=== PATIENT | male | born 1980 | race African-American/Black ===

== ENCOUNTER 2021-01-31 15:51 | Emergency (ER) | payer MEDICAID, SELFPAY ==
--- NOTE | 2021-01-31 | ECG_ITS ---
Test Reason : CHEST PAIN Blood Pressure : / mmHG Vent. Rate : 115 BPM Atrial Rate : 115 BPM P-R Int : 136 ms QRS Dur : 088 ms QT Int : 324 ms P-R-T Axes : 000 141 -24 degrees QTc Int : 448 ms Sinus tachycardia Left posterior fascicular block Low voltage complexes inferior leads Abnormal ECG No previous ECGs available Referred By: Generic ED Physician Electronically Signed By:CHELA HARLEY
--- NOTE | ~2021-01-31 | XR_ITS ---
EXAMINATION: XR CHEST CLINICAL INFORMATION: Shortness of breath COMPARISON: None TECHNIQUE: 2 views of the chest were obtained. FINDINGS: No significant abnormality is noted involving the heart, lungs, mediastinum, bony thorax or soft tissues. XR/XR chest 2V IMPRESSION: Unremarkable examination.
--- NOTE | ~2021-01-31 | CT_ITS ---
EXAMINATION: CT ANGIOGRAM OF THE CHEST WITH AND WITHOUT CONTRAST (CT PULMONARY ANGIOGRAM FOR PE) CLINICAL INFORMATION: Reason for Exam Right-sided pleuritic chest pain x2 days COMPARISON: None TECHNIQUE: Prior to contrast administration, noncontrast localization images were obtained. Subsequently, multidetector volumetric imaging was performed from the thoracic inlet to below the diaphragms following the administration of 85 mL Omnipaque 350 intravenous contrast. No contrast reaction reported Sagittal, coronal, and MIP oblique sagittal reformatted images were obtained on the CT workstation, uploaded to PACS, and reviewed. This CT examination was performed using dose optimization techniques as appropriate, variously including the following: *Automated exposure control *Adjustment of mA and/or kV according to patient size (this includes techniques or standardized protocols for targeted exams where dose is matched to indication/reason for exam; i.e. extremities or head) *Use of iterative reconstruction technique Total exam dose-length product 682 mGy-cm FINDINGS: QUALITY OF STUDY/CONTRAST BOLUS: Suboptimal. PULMONARY ARTERIES: No pulmonary emboli within the central pulmonary arteries. Significantly limited assessment of the segmental and subsegmental pulmonary arteries. THORACIC AORTA: No aneurysm or dissection. LUNG: No focal consolidation, nodules or masses. PLEURA: Trace right pleural effusion. No pneumothorax bilaterally. MEDIASTINUM: Normal heart size. No pericardial effusion. No hilar or mediastinal lymphadenopathy. No evidence of septal bowing or right heart strain. CHEST WALL/AXILLA: No axillary or internal mammary lymphadenopathy. OSSEOUS STRUCTURES: No acute or suspicious osseous abnormality. UPPER ABDOMEN: There is a 4.0 x 2.7 cm oval mass within the left adrenal gland measuring 21 Hounsfield units of internal attenuation. No reflux of contrast into the hepatic veins to suggest elevated right heart pressures. CT/CT angio chest PE protocol IMPRESSION: 1. Suboptimal contrast bolus to assess for pulmonary embolism. Although there are no central pulmonary emboli, the segmental and subsegmental branches are not well assessed. 2. Left adrenal mass measuring 4 cm, indeterminate. When clinically appropriate, follow-up with adrenal protocol CT or MRI is recommended. 3. Trace right pleural effusion. VTE: indeterminate
[2021-01-31] MEDS: Albuterol Sulfate 90 MCG 8 GM INHALER 4 PUFF INHALE (16:19)
[2021-01-31 16:22] VITALS: BP 120/84; PULSE 114; RESP 30; TEMP 36.9; O2SAT 97; BMI 51.6
--- NOTE | 2021-01-31 16:40 | PC.NURSE ---
cxr obtained, provider in room
--- NOTE | 2021-01-31 16:54 | ED_ITS ---
HPI - Chest Pain General Chief Complaint: Chest Pain Stated Complaint: Chest pain Time Seen by Provider: 01/31/21 16:10 Source: patient Mode of arrival: ambulatory Limitations: no limitations History of Present Illness HPI narrative: 40-year-old male who presents emergency department for evaluation of chest pain and shortness of breath x2 days. Patient states that 2 days prior he was coughing and had a sudden onset of right-sided stabbing chest pain. He states the pain has been constant but is significantly worse with breathing and coughing. He states the pain is a sharp pain which is 10/10 if he coughs or breathes. He does feel short of breath and has dyspnea on exertion. He states he has a cough which is productive of thick white phlegm, he has not noticed any blood in the sputum. He has been taking Aleve with no relief of his pain. He denied fever, chills, abdominal pain, nausea, vomiting, pain or swelling in his lower extremities. Patient states that he received 1 Pfizer COVID 19 vaccinatio n in May 2020. Related Data Previous Rx's Medication Instructions Recorded benzonatate 200 mg capsule 200 mg PO TID PRN #15 cap 01/31/21 ketorolac 10 mg tablet 10 mg PO TID PRN 5 Days tab 01/31/21 ketorolac 10 mg tablet 10 mg PO TID PRN 5 Days tab 01/31/21 oxycodone 5 mg tablet 5 mg PO Q4H PRN #14 tab 01/31/21 Allergies Allergy/AdvReac Type Severity Reaction Status Date / Time ibuprofen Allergy Unknown Verified 01/31/21 16:24 morphine Allergy Unknown Verified 01/31/21 16:24 Review of Systems Review of Systems: Yes all other systems are reviewed and are negative [facility] Past Medical History [facility] Narrative: Past medical history: Asthma, depression. Past surgical history: None. Social history: He smokes 4 cigarettes per day times 23 years. He occasionally drinks alcohol. He states that he smokes marijuana 2 to 3 times a week. Social History Social History Alcohol intake: current Alcohol intake frequency: holidays/special occasions only Patient Tobacco Use Status: Current everyday Tobacco user Use of substances other than those prescribed or required for medical reasons: Yes Substance Use Type: Marijuana Advance Directives: No Advance Directives Information Provided: Yes Physical Exam Vital Signs: Vital Signs: Last Vital Signs Temp 97.8 F 01/31/21 18:00 Pulse 100 01/31/21 18:00 Resp 20 01/31/21 18:00 BP 151/86 H 01/31/21 18:00 Pulse Ox 96 01/31/21 18:00 BMI result Body Mass Index 51.6 Const: Other: Awake, alert, male patient, obese, very pleasant and cooperative, appears to be in distress when he takes a deep breath in and holds his right side of his chest. He is able to answer all questions appropriately and speaks in full sentences. HENMT: Head: Yes normal to inspection, Yes normocephalic and Yes atraumatic Ears: external ears normal General nose exam: Normal external nose present Face and sinus: Yes normal facial exam Mouth: Normal oral and palatal mucosa present Throat: Yes posterior oropharynx normal Eyes: General: appearance normal, both eyes and all related structures Pupils: Equal, round and reactive pupils present Neck: Neck: Yes normal visual inspection, Yes no lymphadenopathy, Yes trachea midline and Yes supple Chest: Chest palpation & inspection: normal inspection of the chest and tenderness (Right lateral and anterior chest wall tenderness) Resp: Effort & Inspection: able to speak in complete sentences and abnormal respiratory pattern (Tachypnea) Auscultation: clear to auscultation bilaterally Cardio: Rate: regular rate and tachycardic Rhythm: regular rhythm Heart sounds: S1 normal heart sound present, S2 normal heart sound present and no murmurs GI: Inspection: Yes normal to inspection Palpation (GI): Soft to palpation, nontender and no guarding Auscultation: normal bowel sounds : General: Yes no CVA tenderness Back/Spine/Pelvis: Back: no CVA tenderness Skin: General skin exam: no rashes or lesions noted Neuro: Cranial nerves: Yes CN's II-XII intact bilaterally and Yes Equal, round and reactive pupils present Cognition (Neuro): normal cognition Motor exam (neuro): 5/5 motor strength present throughout Extrem: General: Yes normal to inspection Psych: Appearance: grossly normal Speech and movement: Normal speech and movement present Affect: normal affect Attitude: cooperative Thought process: Normal thought process present Thought content: Normal thought content present Course Course Course Narrative: 40-year-old male who presents to the emergency department for evaluation of 2 days of right-sided pleuritic chest pain which came on suddenly after coughing. Patient also has a productive cough x2 days with shortness of breath and dyspnea on exertion. Initial vital signs revealed an elevated pulse of 114, elevated respiratory rate of 30, was afebrile with a temperature of 98.4? and his O2 saturation was 97% on room air. Physical examination did reveal right anterior and right lateral chest wall tenderness, he was tachypneic and tachycardic otherwise exam was unremarkable. Differential includes but is not limited to pleurisy, pulmonary embolism, pneumonia, pneumothorax, musculoske letal strain from coughing. I ordered a laboratory evaluation to include CBC, CMP, D-dimer, PT INR, PTT, troponin, EKG, chest x-ray. Patient was ordered to get Toradol 15 mg IV 1st pain or normal saline x1 L. I will obtain a CT pulmonary angiogram pulmonary embolism protocol as well. 194: Laboratory evaluation: WBC was elevated at 12,200. BUN and creatinine were slightly elevated 18 and 1.58. COVID-19 was negative. Troponin was detectable but not elevated at 5.2. COVID-19 was negative. Chest x-ray revealed no acute process. CT angiogram pulmonary artery PE protocol was suboptimal but there were no large PEs found by the radiologist. Patient has it incidental 4 cm left adrenal mass, the patient states that he had a small adrenal mass several years ago but never followed up with his doctor. This time I believe the patient's chest pain is consistent with pleurisy. The initial dose of Toradol and a repeat dose of Toradol did improve his pain. He was started on Toradol 10 mg 3 times a day as needed for pain. He was also advised to take Tylenol for pain. For pain not relieved by these 2 medications he was prescribed oxycodone. He he was instructed follow-up with his PCP in 2 weeks for re-evaluation and discuss getting outpatient CT scan adrenal protocol are outpatient MRI to evaluate his adrenal mass. MDM - Chest Pain Lab Data Result diagrams: 01/31/21 17:40 01/31/21 17:40 Labs: Lab Results 01/31/21 01/31/21 01/31/21 Range/Units 17:40 17:40 17:40 WBC 12.2 H (4.8-10.8) X10*3/uL RBC 4.74 (4.60-5.80) X10*6/uL Hgb 14.5 (14.0-18.0) g/dl Hct 43.7 (42.0-52.0) % MCV 92.2 (80.0-98.0) fL MCH 30.6 (27.0-33.0) pg MCHC 33.2 (31.0-36.0) g/dl RDW 12.4 (11.0-16.0) % Plt Count 315 (160-400) X10*3/uL MPV 10.4 (9.4-12.4) fL Immature Gran % (Auto) 0.7 H (0.0-0.4) % Neut % (Auto) 66.9 (45-73) % Lymph % (Auto) 19.0 L (20-40) % Loving % (Auto) 6.5 (2-11) % Eos % (Auto) 6.2 H (0-4) % Baso % (Auto) 0.7 (0-2) % Lymph # (Auto) 2.3 (1.2-4.9) X10*3/uL Loving # (Auto) 0.8 (0.1-1.2) X10*3/uL Eos # (Auto) 0.8 H (0.0-0.4) X10*3/uL Baso # (Auto) 0.1 (0.0-0.2) X10*3/uL Abs Immat Gran (auto) 0.08 H (0.00-0.03) X10*3/uL Absolute Neuts (auto) 8.2 (2.0-8.3) x10*3/uL Absolute Nucleated RBC 0.000 (0.0-0.012) X10*3/uL Nucleated RBC % (auto) 0.0 (0.0-0.2) /100WBC PT 11.7 (9.9-13.0) SEC INR 1.0 (0.9-1.1) APTT 31.8 (24.1-38.0) SEC Sodium 134 L (135-145) mmol/L Potassium 4.3 (3.3-5.1) mmol/L Chloride 101 (96-108) mmol/L Carbon Dioxide 25 (22-29) mmol/L Anion Gap 12 (12-20) BUN 18 H (9-16) mg/dL Creatinine 1.56 H (0.5-1.4) mg/dL Estim Creat Clear Calc 97.1 Estimated GFR 50 Random Glucose 111 (60-115) mg/dL Calcium 9.0 (8.4-10.2) mg/dL Total Bilirubin 0.3 (0.0-1.0) mg/dL AST 18 (5-37) U/L ALT 20 (0-40) U/L Alkaline Phosphatase 82 (39-117) U/L Troponin I High Sens (<3.5-35.0) ng/L Total Protein 6.9 (6.5-8.0) g/dL Albumin 3.6 (3.5-5.0) g/dL Lipase 63 (8-78) U/L COVID-19 (LOLI) (Negative) COVID-19 Clin Com 01/31/21 01/31/21 Range/Units 17:40 17:40 WBC (4.8-10.8) X10*3/uL RBC (4.60-5.80) X10*6/uL Hgb (14.0-18.0) g/dl Hct (42.0-52.0) % MCV (80.0-98.0) fL MCH (27.0-33.0) pg MCHC (31.0-36.0) g/dl RDW (11.0-16.0) % Plt Count (160-400) X10*3/uL MPV (9.4-12.4) fL Immature Gran % (Auto) (0.0-0.4) % Neut % (Auto) (45-73) % Lymph % (Auto) (20-40) % Loving % (Auto) (2-11) % Eos % (Auto) (0-4) % Baso % (Auto) (0-2) % Lymph # (Auto) (1.2-4.9) X10*3/uL Loving # (Auto) (0.1-1.2) X10*3/uL Eos # (Auto) (0.0-0.4) X10*3/uL Baso # (Auto) (0.0-0.2) X10*3/uL Abs Immat Gran (auto) (0.00-0.03) X10*3/uL Absolute Neuts (auto) (2.0-8.3) x10*3/uL Absolute Nucleated RBC (0.0-0.012) X10*3/uL Nucleated RBC % (auto) (0.0-0.2) /100WBC PT (9.9-13.0) SEC INR (0.9-1.1) APTT (24.1-38.0) SEC Sodium (135-145) mmol/L Potassium (3.3-5.1) mmol/L Chloride (96-108) mmol/L Carbon Dioxide (22-29) mmol/L Anion Gap (12-20) BUN (9-16) mg/dL Creatinine (0.5-1.4) mg/dL Estim Creat Clear Calc Estimated GFR Random Glucose (60-115) mg/dL Calcium (8.4-10.2) mg/dL Total Bilirubin (0.0-1.0) mg/dL AST (5-37) U/L ALT (0-40) U/L Alkaline Phosphatase (39-117) U/L Troponin I High Sens 5.2 (<3.5-35.0) ng/L Total Protein (6.5-8.0) g/dL Albumin (3.5-5.0) g/dL Lipase (8-78) U/L COVID-19 (LOLI) Negative (Negative) COVID-19 Clin Com See Note ECG Data ECG #1: Attestation: I personally reviewed and interpreted this ECG as follows: Interpretation: Sixteen 13: Sinus tachycardia with a rate of 115, normal MI, QRS and QTC intervals, small Q-wave in lead 3 and AVF, poor R-wave progression V1 through V3, no ST segment elevation, no ST segment depression, flattened T-waves in leads 1, 2, AVF, V6. There is no old EKG for comparison, this is an abnormal EKG. Discharge Plan Discharge Clinical Impression: Adrenal mass, left, Pleurisy, Viral infection Patient Disposition: Home, Self-Care Instructions: Pleurisy (ED), Viral Syndrome (ED) Additional Instructions: Your blood work was unremarkable. Your COVID-19 test was negative. Your chest x-ray was normal. The CT scan of your chest did not reveal any blood clots, pneumonia or popped lung (pneumothorax). Your symptoms are consistent with inflammation of the lining of your lung (pleurisy). The treatment is to take anti-inflammatory medications. I am prescribing an anti-inflammatory called Toradol (Ketoralac) 10 mgTake ibuprofen 200 mg pills, 3 pills every 6 hours as needed for pain. Also take Tylenol (acetaminophen) 500 mg pills, 2 pills every 4-6 hours as needed for pain. For pain not relieved by Toradol or Tylenol take oxycodone 5 mg pills, 1 pill every 4 hours as needed for pain. Do not drive or work while taking this medication since they can cause sleepiness. Oxycodone is a narcotic medication that can be addicting. If you are concerned about addiction you can ask the pharmacist for less pills or do not get this prescription filled. The CT scan pulmonary angiogram of your chest did see that you have a left-sided adrenal mass (this is in the left side of her abdomen) measuring 4 cm . The radiologist is recommending that you have a follow-up study either a CT scan with adrenal protocol or and MRI of your adrenal glands . It is very important that you do not ignore this finding since sometimes this can represent a cancer of the adrenal gland therefore you should follow-up with your doctor doctor to get the recommended follow-up study. Follow-up with your doctor in 2 days. Please return to the emergency department if your symptoms get worse or if you develop any symptoms that are concerning to you. Prescriptions: New oxycodone 5 mg tablet 5 mg PO Q4H PRN (Reason: pain) Qty: 14 RF: 0 ketorolac 10 mg tablet 10 mg PO TID PRN (Reason: pain) 5 Days RF: 0 benzonatate 200 mg capsule 200 mg PO TID PRN (Reason: cough) Qty: 15 RF: 0 ketorolac 10 mg tablet 10 mg PO TID PRN (Reason: pain) 5 Days RF: 0
[2021-01-31] MEDS: Ketorolac Tromethamine 15 MG/ML VIAL IVPUSH ×2 (17:35→19:33)
[2021-01-31 17:46] LABS: MANUAL DIFF FLAG NO
[2021-01-31 17:53] LABS: Basophils Absolute Auto 0.1 X10*3/uL (0.0-0.2); Basophils Percent Auto 0.7 % (0-2); Eosinophils Absolute Auto 0.8 X10*3/uL (0.0-0.4); Eosinophils Percent Auto 6.2 % (0-4); Hematocrit 43.7 % (42.0-52.0); Hemoglobin 14.5 g/dl (14.0-18.0); Imm Gran Abs Auto 0.08 X10*3/uL (0.00-0.03); Imm Gran Pct Auto 0.7 % (0.0-0.4); Lymphocytes Absolute Auto 2.3 X10*3/uL (1.2-4.9); Mean Corpuscular HGB Conc 33.2 g/dl (31.0-36.0); Mean Corpuscular Hemoglobin 30.6 pg (27.0-33.0); Mean Corpuscular Volume 92.2 fL (80.0-98.0); Mean Platelet Volume 10.4 fL (9.4-12.4); Monocytes Absolute Auto 0.8 X10*3/uL (0.1-1.2); Monocytes Percent Auto 6.5 % (2-11); Neutrophils Absolute Auto 8.2 x10*3/uL (2.0-8.3); Neutrophils Percent Auto 66.9 % (45-73); Platelet Count 315 X10*3/uL (160-400); Red Blood Count 4.74 X10*6/uL (4.60-5.80); Red Cell Distribution Width 12.4 % (11.0-16.0); White Blood Count 12.2 X10*3/uL (4.8-10.8)
[2021-01-31 18:00] VITALS: BP 151/86; PULSE 100; RESP 20; TEMP 36.6; O2SAT 96
[2021-01-31 18:01] LABS: COVID-19 Test Negative (Negative); IDNOW Serial# 9DD0AD1C
[2021-01-31 18:05] LABS: Prothrombin Time 11.7 SEC (9.9-13.0)
[2021-01-31 18:07] LABS: Partial Thromboplastin Time 31.8 SEC (24.1-38.0)
[2021-01-31 18:16] LABS: Alanine Aminotransferase 20 U/L (0-40); Albumin Level 3.6 g/dL (3.5-5.0); Alkaline Phosphatase 82 U/L (39-117); Anion Gap 12 (12-20); Aspartate Amino Transferase 18 U/L (5-37); Bilirubin Total 0.3 mg/dL (0.0-1.0); Blood Urea Nitrogen 18 mg/dL (9-16); Carbon Dioxide 25 mmol/L (22-29); Chloride 101 mmol/L (96-108); Creatinine Clr Calc Pharmacy 97.1; Estimated Glomerular Filt Rate 50; Glucose Random 111 mg/dL (60-115); Lipase 63 U/L (8-78); Potassium 4.3 mmol/L (3.3-5.1); Sodium 134 mmol/L (135-145); Total Protein 6.9 g/dL (6.5-8.0)
[2021-01-31 18:19] LABS: Troponin-I High Sensitivity 5.2 ng/L (<3.5-35.0)
--- NOTE | 2021-01-31 18:53 | PC.NURSE ---
pt returned from ct scan
[2021-01-31] MEDS: iohexoL 350 MG/ML 100 ML INFUS..BTL 85 ML IV (18:56)
[2021-01-31] MEDS: Benzonatate 100 MG CAPSULE 200 MG PO (19:33)
--- NOTE | 2021-01-31 19:41 | PC.NURSE ---
patient a&ox3, vss, rt flank pain, pt medicated per order, awaiting scan results, will continue to monitor.
== END 2021-01-31 20:44 | disposition home or self-care (01) ==
PROVIDERS: Emergency Provider Emergency Medicine Emergency Medical Services
DX: R09.1 Pleurisy (principal); B34.9 Viral infection, unspecified; E27.9 Disorder of adrenal gland, unspecified; Z20.822 Contact with and (suspected) exposure to COVID-19; R06.02 Shortness of breath
CPT/HCPCS: 36415; 71046; 71275; 80053; 83690; 84484; 85025; 85610; 85730; 87635; 93005; 94640; 96374; 96375; 99285; J1885; Q9967

== ENCOUNTER 2021-03-03 16:41 | Emergency (ER) | payer MEDICAID, SELFPAY ==
--- NOTE | ~2021-03-03 | XR_ITS ---
EXAMINATION: XR CHEST CLINICAL INFORMATION: Shortness of breath. COMPARISON: Chest radiograph dated from 01/31/2021. TECHNIQUE: 2 views of the chest were obtained. FINDINGS: Increased interstitial prominence without focal airspace opacities, pleural effusions or pneumothorax. Stable appearance of the cardiomediastinal silhouette. No acute osseous abnormalities. XR/XR chest 2V IMPRESSION: Increased interstitial prominence which could be seen in the setting of asthma, bronchitis or atypical infectious/inflammatory process of the small airways in the appropriate clinical context. No focal airspace opacities.
[2021-03-03 16:58] VITALS: BP 158/77; PULSE 101; RESP 22; TEMP 36.6; O2SAT 95; BMI 51.6
--- NOTE | 2021-03-03 17:01 | ECG_ITS ---
Test Reason : dyspnea/cp Blood Pressure : / mmHG Vent. Rate : 101 BPM Atrial Rate : 101 BPM P-R Int : 152 ms QRS Dur : 082 ms QT Int : 344 ms P-R-T Axes : 050 052 -11 degrees QTc Int : 446 ms Sinus tachycardia with occasional Premature atrial complexes Cannot rule out Inferior infarct (cited on or before 03-MAR-2021) Abnormal ECG When compared with ECG of 31-JAN-2021 16:13, Premature atrial complexes are now Present Left posterior fascicular block is no longer Present Inverted T waves have replaced nonspecific T wave abnormality in Inferior leads Referred By: Generic ED Physician Electronically Signed By:DANIEL AGUILAR MD
[2021-03-03 17:30] LABS: MANUAL DIFF FLAG NO
[2021-03-03 17:32] LABS: Appearance Urine CLEAR; Color Urine STRAW; Glucose Urine UA NEG (NEG); Leukocyte Esterase Urine NEG (NEG); Nitrite Urine NEG (NEG); Specific Gravity - Urine 1.025 (1.005-1.025); UACC Culture Trigger NO; Urine Blood 1+ (NEG); Urine Ketones NEG (NEG); Urine Protein 3+ MG/DL (NEG-TRACE)
[2021-03-03 17:33] LABS: Basophils Percent Auto 0.3 % (0-2); Eosinophils Absolute Auto 0.4 X10*3/uL (0.0-0.4); Eosinophils Percent Auto 4.6 % (0-4); Hematocrit 41.6 % (42.0-52.0); Hemoglobin 13.2 g/dl (14.0-18.0); Imm Gran Abs Auto 0.05 X10*3/uL (0.00-0.03); Imm Gran Pct Auto 0.5 % (0.0-0.4); Lymphocytes Absolute Auto 1.8 X10*3/uL (1.2-4.9); Lymphocytes Percent Auto 19.5 % (20-40); Mean Corpuscular HGB Conc 31.7 g/dl (31.0-36.0); Mean Corpuscular Hemoglobin 29.7 pg (27.0-33.0); Mean Corpuscular Volume 93.5 fL (80.0-98.0); Mean Platelet Volume 9.7 fL (9.4-12.4); Monocytes Absolute Auto 0.6 X10*3/uL (0.1-1.2); Monocytes Percent Auto 6.2 % (2-11); Neutrophils Absolute Auto 6.4 x10*3/uL (2.0-8.3); Neutrophils Percent Auto 68.9 % (45-73); Platelet Count 311 X10*3/uL (160-400); Red Blood Count 4.45 X10*6/uL (4.60-5.80); Red Cell Distribution Width 12.5 % (11.0-16.0); White Blood Count 9.3 X10*3/uL (4.8-10.8)
[2021-03-03 17:43] LABS: Hyaline Casts Urine 0-2 /LPF; RBC Urine 0-2 /HPF (0); Squamous Epithelial Cell Urine 1+ /LPF
[2021-03-03 17:52] LABS: B Type Natriuretic Peptide < 10 pg/mL (<100)
[2021-03-03 17:53] LABS: COVID-19 Test Positive (Negative); IDNOW Serial# 9DD0AD1C
[2021-03-03 18:00] LABS: Alanine Aminotransferase 26 U/L (0-40); Albumin Level 3.1 g/dL (3.5-5.0); Alkaline Phosphatase 84 U/L (39-117); Anion Gap 8 (12-20); Aspartate Amino Transferase 20 U/L (5-37); Bilirubin Total < 0.2 mg/dL (0.0-1.0); Blood Urea Nitrogen 17 mg/dL (9-16); Calcium 8.5 mg/dL (8.4-10.2); Carbon Dioxide 32 mmol/L (22-29); Chloride 104 mmol/L (96-108); Creatinine Clr Calc Pharmacy 100.3; Estimated Glomerular Filt Rate 51; Glucose Random 109 mg/dL (60-115); Lipase 105 U/L (8-78); Potassium 4.7 mmol/L (3.3-5.1); Sodium 139 mmol/L (135-145); Total Protein 6.2 g/dL (6.5-8.0)
== END 2021-03-04 02:15 | disposition left against medical advice (07) ==
PROVIDERS: Emergency Provider Emergency Medicine
DX: U07.1 COVID-19 (principal); R10.9 Unspecified abdominal pain; R06.02 Shortness of breath
CPT/HCPCS: 36415; 71046; 80053; 81001; 83690; 83880; 84484; 85025; 87635; 93005; 99283